=== PATIENT | female | born 1990 | race Caucasian/White ===

== ENCOUNTER 2025-05-21 16:29 | Emergency (ER) | payer MEDICAID, OTHER ==
[~2025-05-21] VITALS: Ht 154.9 cm; Wt 70.0 kg
[~2025-05-21 16:29] MED LIST: CIPR-263 PO; IRON18TA PO; PREN1TAB49 PO; [UNRECOGNIZED DRUG - CODE] PO
[2025-05-21 16:38] VITALS: O2SAT 99
[2025-05-21] MEDS: KETOROLAC 15MG/ML VIAL IV ONE (17:39)
[2025-05-21] MEDS: SODIUM CHLORIDE 0.9% 1,000 ML IV ONE (17:39)
[2025-05-21] MEDS: ONDANSETRON HCL 4MG/2ML INJ IV ONE (17:39)
[2025-05-21] MEDS: TETANUS, DIPHTHERIA, PERTUSSIS VAC/PF 0.5ML (>10YR OLD) IM ONE (17:40)
[2025-05-21] MEDS ORDERED: AMOX1TAB16 MT (19:44)
[2025-05-21 19:51] VITALS: BP 120/68; PULSE 65; RESP 15; TEMP 36.9; O2SAT 99
== END 2025-05-21 19:59 | disposition home or self-care (01) ==
LOC: ER 16:29
DX: S00.11XA Contusion of right eyelid and periocular area, initial encounter (principal); S80.02XA Contusion of left knee, initial encounter; S50.312A Abrasion of left elbow, initial encounter; S50.311A Abrasion of right elbow, initial encounter; M54.2 Cervicalgia; F17.200 Nicotine dependence, unspecified, uncomplicated; Z79.899 Other long term (current) drug therapy; Y04.1XXA Assault by human bite, initial encounter; Y93.89 Activity, other specified; Y92.59 Other trade areas as the place of occurrence of the external cause; Y99.8 Other external cause status
CPT/HCPCS: 99285; 70450; 96374; 96361; 96375; 73080; 73090; 73560; 70486; 72125; 90715; 90471; J1885; J2405; J7030